=== PATIENT | male | born 1990 | race Caucasian/White ===

== ENCOUNTER → 2022-07-27 17:57 | Outpatient (CLI) | payer OTHER, SELFPAY ==
--- NOTE | 2022-07-27 18:07 | DI.RAD.S_ITS ---
PROCEDURE: XR LUMBAR SPINE MIN 4V INDICATIONS: Z98.1 TECHNIQUE: 5 views of the lumbar spine acquired, including flexion and extension views. COMPARISON: None. FINDINGS: Bones: 5 nonrib-bearing vertebrae are present. Postsurgical changes from L5-S1 fusion. Mild right convexity curvature of the lumbar spine centered at L3-L4. Four-5 millimeters retrolisthesis L5 on S1, no significant change with flexion or extension. 2 millimeters retrolisthesis L4 on L5, no significant change with flexion or extension. 2 millimeters retrolisthesis L3 on L4, no significant change with flexion or extension 3 millimeters retrolisthesis L2 on L3, no significant change in flexion or extension. No vertebral body compression fractures. No suspicious bony lesions. Soft tissues: Overlying bowel gas pattern is normal. No suspicious soft tissue calcifications. IMPRESSION: 1. Postsurgical changes from L5-S1 fusion. 2. No definite abnormal motion with flexion or extension. Dictated by: Kraig Askew M.D. on 07/28/2022 at 16:56 Approved by: Kraig Askew M.D. on 07/28/2022 at 17:01
== END ==
PROVIDERS: Referring Provider Orthopaedic Surgery Orthopaedic Surgery of the Spine; Visit Provider Orthopaedic Surgery Orthopaedic Surgery of the Spine
DX: Z98.1 Arthrodesis status (principal); Z09 Encounter for follow-up examination after completed treatment for conditions other than malignant neoplasm
CPT/HCPCS: 72110